=== PATIENT | male | born 1935 | race Caucasian/White ===

== ENCOUNTER 2016-08-04 15:14 | Emergency (ER) | payer MEDICARE ==
[2014-12-16 11:00] VITALS: BP 103/53
[~2016-08-04 15:14] MED LIST: ACET5SOL PO; ASPI-482 PO; BUME1TAB PO; DOCU-27 PO; FLUT9.9S NS; FURO40TA4 PO; GLYB2.5T2 PO; HYDR-963 PO; IPRA0.2S5 NEB; METO-269 PO; NITR0.4T SL; PROAIR HFA8.5 GM IH; ROPI0.5T PO; SIMV10TA3 PO; SIMV20TA3 PO; WARF2TAB7 PO; WARF5TAB7 PO; ZOLP10TA4 PO
--- NOTE | 2016-08-04 16:03 | PHYS DOC ---
Past Medical History Past Medical History: CAD, Cancer, Diabetes-Type II, High Cholesterol, MD, Other Additional Past Medical Histor: PVD, BLOOD CLOT ,ANEURYSM Past Surgical History: Coronary Bypass Surgery, Pacemaker, Tonsillectomy, Other Additional Past Surgical Histo: rt kidney removed, skin ca, back sx, rt leg Alcohol Use: Rarely Drug Use: None Adult General HPI HPI 81-year-old chronically ill male with multiple medical problems presents in full cardiac arrest via EMS. The history is a little hazy however it appears that the patient collapsed at home EMS arrived shortly thereafter and brought the patient in emergency traffic. According to EMS after ACLS protocol he did have spontaneous return of circulation but lost his pulse again after arrival to our department. According to the he was very ill recently and in the hospital. She says they found a blood clot in his heart and they started Coumadin. He's had a fall since that time. Patient is unable to provide any history secondary to ongoing CPR [] Review of Systems Review of Systems Review of systems is unobtainable secondary to critical nature of the patient's illness Allergies Allergies Allergies Coded Allergies Type Severity Reaction Last Updated Verified Penicillins Allergy Intermediate hives 12/15/14 Yes Tetanus Vaccines & Toxoid Allergy Intermediate hives at site 12/15/14 Yes diazepam Allergy Intermediate hives 12/15/14 Yes niacin Allergy Intermediate "on fire" 12/15/14 Yes Physical Exam Physical Exam Constitutional: Frail elderly cachectic male undergoing active CPR. [] HENT: Ecchymosis to forehead that appears old. [] Eyes: Pupils are fixed and dilated [] Neck: Normal range of motion, no tenderness, supple, no stridor. [] Cardiovascular: Good pulses with compressions [] Lungs & Thorax: Bilateral breath sounds clear to auscultation with assisted ventilation [] Abdomen: Bowel sounds normal, soft, no tenderness, no masses, no pulsatile masses. [] Skin: Multiple areas of ecchymosis in multiple stages of resolution. [] Back: No tenderness, no CVA tenderness. [] Extremities: No tenderness, no cyanosis, no clubbing, ROM intact, no edema. [] Neurologic: Obtunded. [] Psychologic: Unable to assess. [] EKG EKG [] Radiology/Procedures Radiology/Procedures [] Course & Med Decision Making Course & Med Decision Making Pertinent Labs and Imaging studies reviewed. (See chart for details) [Procedure: Rapid sequence intubation During active CPR 4 Malcom blade was used to directly visualize the vocal cords and a 7.5 ET tube was passed to 23 cm at the lip cuff was inflated and good CO2 color change and bilateral breath sounds were auscultated. Please see CODE BLUE sheet for specifics of his medical care] Dragon Disclaimer Dragon Disclaimer This electronic medical record was generated, in whole or in part, using a voice recognition dictation system. Departure Departure Impression: Primary Impression: Sudden cardiac Disposition: 20 Condition: GRAVE Referrals: TRISTA BONILLA MD (PCP) ADITYA STEEN DO Aug 04, 2016 16:03
== END 2016-08-04 18:12 | disposition expired ==
LOC: ER 15:14
DX: I46.9 Cardiac arrest, cause unspecified (principal); I25.10 Atherosclerotic heart disease of native coronary artery without angina pectoris; E11.9 Type 2 diabetes mellitus without complications; E78.00 Pure hypercholesterolemia, unspecified; I73.9 Peripheral vascular disease, unspecified; I72.9 Aneurysm of unspecified site; I25.2 Old myocardial infarction; Z88.8 Allergy status to other drugs, medicaments and biological substances; Z88.7 Allergy status to serum and vaccine; Z88.0 Allergy status to penicillin; Z95.1 Presence of aortocoronary bypass graft; Z96.89 Presence of other specified functional implants
CPT/HCPCS: 31500; 92950; 99285-25